=== PATIENT | male | born 1980 | race Caucasian/White ===

== ENCOUNTER 2018-05-04 07:21 | Emergency (ER) | payer BC, OTHER ==
[~2018-05-04] VITALS: Ht 180.3 cm; Wt 94.3 kg
[2018-05-04 07:29] VITALS: BP 159/90
[2018-05-04] MEDS ORDERED: KEFLEX500 M1 PO (08:27)
== END 2018-05-04 08:37 | disposition home or self-care (01) ==
LOC: ER 07:21
DX: S01.81XA Laceration without foreign body of other part of head, initial encounter (principal); W22.8XXA Striking against or struck by other objects, initial encounter; Y93.89 Activity, other specified; Y92.89 Other specified places as the place of occurrence of the external cause; Y99.8 Other external cause status